=== PATIENT | female | born 1980 | race Caucasian/White ===

== ENCOUNTER 2018-01-13 21:39 | Emergency (ER) | payer BC ==
[2018-01-13 21:49] VITALS: Ht 165.1 cm
[2018-01-14 01:58] VITALS: BP 152/84
== END 2018-01-14 01:58 | disposition home or self-care (01) ==
LOC: ED 21:39
DX: S39.012A Strain of muscle, fascia and tendon of lower back, initial encounter (principal); S20.219A Contusion of unspecified front wall of thorax, initial encounter; Z88.2 Allergy status to sulfonamides; V49.88XA Car occupant (driver) (passenger) injured in other specified transport accidents, initial encounter; Y93.I9 Activity, other involving external motion; Y92.413 State road as the place of occurrence of the external cause; Y99.8 Other external cause status

== ENCOUNTER 2018-04-18 11:34 | Emergency (ER) | payer BC ==
[~2018-04-18] VITALS: Ht 162.6 cm; Wt 88.0 kg
[2018-04-18 11:39] VITALS: Ht 162.6 cm; Wt 88.0 kg
[2018-04-18 13:26] LABS: BASOPHIL % 0.4 % (0-2)
[2018-04-18 13:33] LABS: CALCIUM 9.2 mg/dL (8.5-10.1); CARBON DIOXIDE 25.1 mmol/L (21-32); CHLORIDE SERUM 103 mmol/L (98-107); CREATININE SERUM 0.8 mg/dL (0.6-1.0); GFR1 > 60 mL/min; GLUCOSE SERUM 112 mg/dL (74-106); POTASSIUM SERUM 3.8 mmol/L (3.5-5.1); SODIUM SERUM 138 mmol/L (136-145)
[2018-04-18 13:38] LABS: ALKALINE PHOSPHATASE 63 U/L (46-116); ALT/SGPT 29 U/L (14-59); AST/SGOT 24 U/L (15-37); BILIRUBIN TOTAL 1.73 mg/dL (0.20-1.00); URIC ACID 3.6 mg/dL (2.6-6.0)
[2018-04-18 13:40] LABS: TOTAL PROTEIN, SERUM 8.4 g/dL (6.4-8.2)
[2018-04-18 13:49] LABS: PLATELET COUNT 205 x10^3mcL (130-400); RED CELL DISTRIBUTION WIDTH 17.1 % (11.5-14.5)
[2018-04-18 14:26] VITALS: BP 115/51
== END 2018-04-18 14:26 | disposition home or self-care (01) ==
LOC: ED 11:34
PROVIDERS: Emergency Medicine
DX: N23 Unspecified renal colic (principal); Z88.2 Allergy status to sulfonamides
CPT/HCPCS: J1885; J2405; J7030